=== PATIENT | male | born 1995 | race Caucasian/White ===

== ENCOUNTER 2023-12-24 08:26 | Emergency (ER) | payer SELFPAY ==
[~2023-12-24] VITALS: Ht 182.9 cm; Wt 86.0 kg
[2023-12-24 09:14] VITALS: PULSE 70; RESP 16; TEMP 97.5; O2SAT 97
[2023-12-24] MEDS ORDERED: VALTREX1000 MG PO (09:23)
== END 2023-12-24 09:31 | disposition home or self-care (01) ==
LOC: FSED 09:24
DX: A60.02 Herpesviral infection of other male genital organs (principal); F17.210 Nicotine dependence, cigarettes, uncomplicated
CPT/HCPCS: 99283

== ENCOUNTER 2023-12-27 10:39 | Emergency (ER) | payer SELFPAY ==
[~2023-12-27] VITALS: Ht 182.9 cm; Wt 85.7 kg
[~2023-12-27 10:39] MED LIST: VALTREX1000 MG PO
[2023-12-27 10:45] VITALS: PULSE 60; RESP 18; TEMP 98.7
[2023-12-27] MEDS ORDERED: LOTRIMIN AF12 GM TOP (11:26)
[2023-12-27 12:33] VITALS: BP 126/76; PULSE 62; RESP 18; TEMP 98.7; O2SAT 100
== END 2023-12-27 11:30 | disposition home or self-care (01) ==
LOC: FSED 10:57
DX: B48.8 Other specified mycoses (principal)
CPT/HCPCS: 99283